=== PATIENT | male | born 1970 | race Caucasian/White ===

== ENCOUNTER 2018-09-18 13:45 | Emergency (ER) | payer SELFPAY ==
--- NOTE | 2018-09-18 14:32 | EDM.PDOC ---
ED HPI GENERAL MEDICAL PROBLEM - General Chief Complaint: Gastrointestinal Problem Stated Complaint: DIARRHEA X 2 WEEKS SENT BY CLINIC Time Seen by Provider: 09/18/18 14:06 Source of Information: Reports: Patient, RN Notes Reviewed - History of Present Illness INITIAL COMMENTS - FREE TEXT/NARRATIVE: 48 year old male with diarrhea for about 17 days. He was evaluated a week ago, told it would get better but still having 4 to 5 episodes of diarrhea every time he tries to eat. He was having a lot of pain initially which is gone. No fever or chills. States he did eat some chicken that tasted bad at a buffet about a day or 2 before he became ill. No nausea or vomiting. Right Middle Abdomen Pain Score (Numeric/FACES): 2 - Related Data Allergies Allergy/AdvReac Type Severity Reaction Status Date / Time No Known Allergies Allergy Verified 09/18/18 14:06 Home Meds: Home Meds . [No Known Home Meds] 09/18/18 [History] Past Medical History Cardiovascular History: Reports: High Cholesterol Social & Family History - Tobacco Use Smoking Status *Q: Never Smoker - Caffeine Use Caffeine Use: Reports: Coffee, Energy Drinks, Soda - Recreational Drug Use Recreational Drug Use: No ED ROS GENERAL - Review of Systems Review Of Systems: See Below Constitutional: Denies: Fever, Chills, Diaphoresis HEENT: Reports: No Symptoms Respiratory: Denies: Shortness of Breath Cardiovascular: Denies: Chest Pain GI/Abdominal: Reports: Abdominal Pain (gone), Diarrhea, Nausea. Denies: Vomiting Musculoskeletal: Denies: Back Pain Skin: Denies: Rash Neurological: Reports: No Symptoms ED EXAM, GI/ABD - Physical Exam Exam: See Below General Appearance: Alert, No Apparent Distress Throat/Mouth: Normal Inspection Head: No: Facial Swelling Neck: Supple Respiratory/Chest: No Respiratory Distress, Lungs Clear, Normal Breath Sounds Cardiovascular: Regular Rate, Rhythm GI/Abdominal Exam: Soft, Non-Tender. No: Guarding Back Exam: No: CVA Tenderness (L), CVA Tenderness (R) Extremities: Normal Inspection, Normal Range of Motion Neurological: Alert, Oriented, No Motor/Sensory Deficits Skin Exam: Warm, Dry, Normal Color Course - Vital Signs Last Recorded V/S: Last Vital Signs Temp 98.7 F 09/18/18 14:08 Pulse 96 09/18/18 14:08 Resp 20 09/18/18 14:08 BP 123/81 09/18/18 14:08 Pulse Ox 96 09/18/18 14:08 Departure - Departure Time of Disposition: 14:29 Disposition: Home, Self-Care 01 Condition: Fair Clinical Impression: Diarrhea - Discharge Information Instructions: Diarrhea, Adult, [id number] Referrals: PCP,Not In Area [Primary Care Provider] - Forms: ED Department Discharge, ED Return to Work/School Form Additional Instructions: Clear liquids until tomorrow, then very careful bland diet for the next several days until symptoms resolving, start Cipro antibiotic and take that 500 mg twice daily for 5 days until gone, also start probiotic which is available OTC, take that twice daily for at least 2 weeks and thereafter as needed. Follow-up clinic if not much better within 4-5 days as expected, call [phone] if needed for appointment.
== END 2018-09-18 14:40 | disposition home or self-care (01) ==
LOC: JD.ED 13:45
DX: R19.7 Diarrhea, unspecified (principal)
CPT/HCPCS: 99284